=== PATIENT | male | born 1940 | race Caucasian/White ===

== ENCOUNTER 2018-09-09 11:07 | Emergency (ER) | payer MEDICARE, OTHER ==
[2018-09-09 13:00] VITALS: BP 173/72
--- NOTE | 2018-09-09 13:52 | ED ---
Throat Pain/Nasal Congestion - HPI Summary HPI Summary: patient is a 78-year-old male presenting to the ED with left ear discomfort. He states he feels as though the ear is clogged and has decreased hearing in the side. He states this happened before and he is needed ear irrigation. Patient arrives to the ED requesting ear irrigation today. Denies any other symptoms. Denies fevers, sweats, chills. There is no radiation of pain. No pain to the neck or to the throat. - History of Current Complaint Chief Complaint: EDEarPain Time Seen by Provider: 09/09/18 11:17 Hx Obtained From: Patient Onset/Duration: Sudden Onset Severity: Moderate Associated Signs And Symptoms: Positive: Negative - Epiglottits Risk Factors Epiglottis Risk Factors: Negative - Allergies/Home Medications Allergies/Adverse Reactions: Allergies Allergy/AdvReac Type Severity Reaction Status Date / Time No Known Allergies Allergy Verified 10/15/16 10:45 PMH/Surg Hx/FS Hx/Imm Hx Previously Healthy: Yes Endocrine/Hematology History: Reports: Hx Diabetes Cardiovascular History: Reports: Hx Hypertension Denies: Hx Pacemaker/ICD Respiratory History: Reports: Hx Asthma, Hx Chronic Bronchitis, Hx Chronic Obstructive Pulmonary Disease (COPD), Hx Sleep Apnea, Other Respiratory Problems /Disorders - asbestosis GI History: Reports: Hx Gastroesophageal Reflux Disease - CERTAIN FOODS History: Reports: Hx Kidney Stones, Other Problems/Disorders - PRIOR KIDNEY STONES; ED Denies: Hx Renal Disease Musculoskeletal History: Reports: Hx Arthritis - GENERALIZED, Hx Back Problems, Hx Gout, Other Musculoskeletal History - knee surgery Sensory History: Reports: Hx Cataracts, Hx Contacts or Glasses - READING GLASSES , Hx Glaucoma, Other Sensory Impairments - dentures Denies: Hx Hearing Aid Opthamlomology History: Reports: Hx Cataracts, Hx Contacts or Glasses - READING GLASSES, Hx Glaucoma, Other Sensory Impairments - dentures Neurological History: Reports: Other Neuro Impairments/Disorders - PAIN CLINIC INJECTION Psychiatric History: Reports: Hx Anxiety - NO MEDS Denies: Hx Panic Disorder - Surgical History Surgery Procedure, Year, and Place: Lt CARPAL TUNNEL,. KIDNEY STONES,. CATARACTS. MAGGIE KNEE REPLACEMENTS - 2013 & 2014 Hx Anesthesia Reactions: No - Immunization History Hx Pertussis Vaccination: No Immunizations Up to Date: Yes Infectious Disease History: No Infectious Disease History: Denies: Traveled Outside the [place] in Last 30 Days - Family History Known Family History: Positive: Diabetes - possibly father - Social History Occupation: Unemployed Lives: With Family Alcohol Use: Weekly Alcohol Amount: 2-3 DRINKS/WK Hx Substance Use: No Substance Use Type: Reports: None Smoking Status (MU): Former Smoker Type: Cigarettes Amount Used/How Often: LESS THEN 1PPD 10 YRS Have You Smoked in the Last Year: No Review of Systems Constitutional: Negative Negative: Fever, Chills, Fatigue, Skin Diaphoresis Positive: Ear Ache Negative: Palpitations, Chest Pain Negative: Shortness Of Breath, Cough Musculoskeletal: Negative Positive: Rash Neurological: Negative All Other Systems Reviewed And Are Negative: Yes Physical Exam Triage Information Reviewed: Yes Vital Signs On Initial Exam: Initial Vitals Temp Pulse Resp BP Pulse Ox 97.5 F 75 18 148/67 97 09/09/18 11:12 09/09/18 11:12 09/09/18 11:12 09/09/18 11:12 09/09/18 11:12 Vital Signs Reviewed: Yes Appearance: Positive: Well-Appearing, Well-Nourished Skin: Positive: Warm, Skin Color Reflects Adequate Perfusion Head/Face: Positive: Normal Head/Face Inspection ENT: Positive: Other - L ear cerumen impaction Neck: Positive: Supple, No Lymphadenopathy Respiratory/Lung Sounds: Positive: Clear to Auscultation, Breath Sounds Present Cardiovascular: Positive: RRR, Pulses are Symmetrical in both Upper and Lower Extremities Psychiatric: Positive: Normal Diagnostics - Vital Signs Vital Signs Temp Pulse Resp BP Pulse Ox 09/09/18 12:51 98.3 F 67 18 173/72 98 09/09/18 11:12 97.5 F 75 18 148/67 97 - Laboratory Lab Statement: Any lab studies that have been ordered have been reviewed, and results considered in the medical decision making process. EENT Course/Dx - Course Course Of Treatment: Patient is evaluated for left ear cerumen impaction. On physical examination, there is a small amount of cerumen buildup to the right ear and a significant amount of buildup to the left ear. The ear is completely occluded. Patient denies having any pain, however is endorsing decreased hearing. Warm normal saline with hydrogen peroxide with irrigation to bilateral ears. Using ear alligator forceps and curette, a large amount of cerumen was disimpacted from the ear. Patient feels much improved and will be discharged home with cerumen impaction. - Diagnoses Provider Diagnoses: Cerumen impaction Discharge - Sign-Out/Discharge Documenting (check all that apply): Patient Departure Patient Received Moderate/Deep Sedation with Procedure: No - Discharge Plan Condition: Stable Disposition: HOME Patient Education Materials: Cerumen Impaction (ED) Referrals: Jed Kline MD [Medical Doctor] - Gretchen Gaitan MD [Primary Care Provider] - Additional Instructions: Hydrogen peroxide and debrox solution may help You may also follow up with an ENT physician for worsening symptoms - Billing Disposition and Condition Condition: STABLE Disposition: Home
== END 2018-09-09 12:51 | disposition home or self-care (01) ==
LOC: ED 11:07
DX: H61.22 Impacted cerumen, left ear (principal); F41.9 Anxiety disorder, unspecified; Z87.442 Personal history of urinary calculi; M19.90 Unspecified osteoarthritis, unspecified site; Z87.891 Personal history of nicotine dependence
CPT/HCPCS: 69209; 99281

== ENCOUNTER 2024-01-28 18:48 | Observation (INO) ==
[2024-01-28 19:09] LABS: ABS Eosinophils 0.1 10^3/uL (0.0-0.5); ABS Lymphocytes 0.7 10^3/uL (1.0-4.8); ABS Monocytes 0.6 10^3/uL (0.0-1.1); ABS Neutrophils 7.6 10^3/uL (1.5-7.6); ABS Nucleated RBC 0.01 10^3/ul; Eosinophil % 0.7 %; Hematocrit 40.4 % (38-53); Hemoglobin 13.2 g/dL (13.2-16.3); Lymphocyte % 7.7 %; Mean Corpuscular Hemoglobin 29.9 pg (27-33); Mean Corpuscular Hgb Conc 32.7 g/dL (31-36); Mean Corpuscular Volume 91.7 fL (80-97); Mean Platelet Volume 8.5 fL (7.5-11.2); Nucleated Red Blood Cells % 0.1 %/100WBC (0.0-0.8); Platelet Count 140 10^3/uL (150-450); Red Blood Count 4.41 10^6/uL (4.06-5.63)
[2024-01-28 19:12] LABS: INR 1.18 (0.85-1.14)
[2024-01-28 19:48] LABS: Albumin 4.1 g/dL (3.2-5.2); Calcium 9.1 mg/dL (8.6-10.3); Creatinine, Serum 2.2 mg/dL (0.67-1.17); Globulin 2.1 g/dL (2-4); Potassium 4.7 mmol/L (3.5-5.0); Total Bilirubin 1.2 mg/dL (0.2-1.0); Total Protein 6.2 g/dL (6.4-8.9); eGFR CKD-EPI 29.4 (>60)
[2024-01-28 20:33] LABS: High Sensitivity Troponin 1 Hr 93 pg/mL (<20)
[2024-01-28 20:33] LABS: TSH Ultra Thyroid Stim Horm 1.05 mcIU/mL (0.34-5.60)
[2024-01-29] MEDS ORDERED: Sulfur Hexaflouride MICROSPHR 25 MG VIAL IV PRN (01:57)
[2024-01-29] MEDS ORDERED: Albuterol HFA INHALER 8 gm MDI INH PRN (02:00)
[2024-01-29] MEDS ORDERED: Dextrose 50% Syringe 50 ml 25 GM/50 ML SYRINGE IV PUSH PRN (02:46)
[2024-01-29] MEDS: Mometasone/Formoter 100/5 MDI INH SCH (08:37)
[2024-01-29] MEDS: CMCS: Simvastatin 10 mg TAB (NF) PO SCH (08:38)
[2024-01-29] MEDS: Lactated Ringers 1000 ml BAG 1,000 ML IV SCH (08:43)
[2024-01-29 13:59] VITALS: BP 136/91
[2024-01-29 14:58] LABS: ABS Eosinophils 0.1 10^3/uL (0.0-0.5); ABS Lymphocytes 0.9 10^3/uL (1.0-4.8); ABS Monocytes 0.6 10^3/uL (0.0-1.1); ABS Neutrophils 5.4 10^3/uL (1.5-7.6); ABS Nucleated RBC 0.01 10^3/ul; Eosinophil % 0.9 %; Hematocrit 38.5 % (38-53); Hemoglobin 12.4 g/dL (13.2-16.3); Lymphocyte % 12.8 %; Mean Corpuscular Hemoglobin 29.7 pg (27-33); Mean Corpuscular Hgb Conc 32.3 g/dL (31-36); Mean Corpuscular Volume 91.8 fL (80-97); Mean Platelet Volume 8.2 fL (7.5-11.2); Nucleated Red Blood Cells % 0.2 %/100WBC (0.0-0.8); Platelet Count 130 10^3/uL (150-450); Red Cell Distribution Width 16.8 % (12-17)
[2024-01-29 15:31] LABS: Calcium 8.9 mg/dL (8.6-10.3); Creatinine, Serum 1.73 mg/dL (0.67-1.17); Potassium 4.4 mmol/L (3.5-5.0); eGFR CKD-EPI 39.2 (>60)
== END 2024-01-29 17:20 | disposition home health service (06) ==
LOC: ED 18:48 → EDHOLD 18:48 → SUATTDRO 01-29 01:14 → MEDTELE 01-29 08:50
PROVIDERS: ADMIT Internal Medicine; ATTEND Hospitalist